=== PATIENT | female | born 1945 | race Caucasian/White ===

== ENCOUNTER → 2017-04-09 | Outpatient (CLI) | payer MEDICARE, BC | LOC: MC.RAD 12:58 | DX: Z12.31 Encounter for screening mammogram for malignant neoplasm of breast (principal) ==

== ENCOUNTER → 2018-04-29 | Outpatient (CLI) | payer MEDICARE, BC | LOC: MC.RAD 06:55 | DX: Z12.31 Encounter for screening mammogram for malignant neoplasm of breast (principal) ==

== ENCOUNTER → 2019-06-19 | Outpatient (CLI) | payer MEDICARE, BC | LOC: MC.RAD 07:25 | DX: Z12.31 Encounter for screening mammogram for malignant neoplasm of breast (principal) ==

== ENCOUNTER → 2020-08-04 | Outpatient (CLI) | payer MEDICARE, BC | LOC: MC.RAD 09:35 | DX: Z12.31 Encounter for screening mammogram for malignant neoplasm of breast (principal) ==

== ENCOUNTER → 2021-10-28 | Outpatient (CLI) | payer MEDICARE, BC | LOC: MC.RAD 06:55 | DX: Z12.31 Encounter for screening mammogram for malignant neoplasm of breast (principal) ==

== ENCOUNTER → 2022-10-31 | Outpatient (CLI) | payer MEDICARE, BC ==
[~2022-10-31] MED LIST: CALCIUM 600MG+D1 TAB PO; FOSAMAX 70MG TA70 MG PO; OMEGA-3 1000 MG1 CAP PO; ONE DAILY ESSE0.5 M1 PO; PRAVACHOL 20MG20 MG PO; PRESERVISION1 SGL PO; THE MEDICINE S200 M2 PO; ZEBETA 5MG5 MG PO; ZOVIRAX400 MG PO
== END ==
LOC: MC.RAD 08:00
DX: Z12.31 Encounter for screening mammogram for malignant neoplasm of breast (principal)